=== PATIENT | female | born 2000 | race Caucasian/White ===

== ENCOUNTER → 2021-10-14 | Outpatient (CLI) | payer OTHER | END | disposition home or self-care (01) | LOC: US 10:00 | PROVIDERS: ATTEND Nurse Practitioner Women's Health | DX: N93.9 Abnormal uterine and vaginal bleeding, unspecified (principal); Z53.8 Procedure and treatment not carried out for other reasons; Z97.5 Presence of (intrauterine) contraceptive device ==

== ENCOUNTER 2022-12-03 08:31 | Emergency (ER) | payer OTHER ==
[~2022-12-03] VITALS: Ht 157.4 cm; Wt 79.4 kg
[2022-12-03] MEDS ORDERED: TOPIRAMATE25 M3 PO (08:45)
[2022-12-03] MEDS ORDERED: OMEPRAZOLE40 MG PO (08:45)
[2022-12-03] MEDS ORDERED: PREDNISONE50 MG PO (10:17)
[2022-12-03] MEDS ORDERED: EPIPEN 2-P0.3 MG/0.3 IJ (10:19)
== END 2022-12-03 10:26 | disposition home or self-care (01) ==
LOC: ED 08:31
DX: T78.1XXA Other adverse food reactions, not elsewhere classified, initial encounter (principal); Z91.013 Allergy to seafood; Z88.8 Allergy status to other drugs, medicaments and biological substances; Z79.899 Other long term (current) drug therapy; X58.XXXA Exposure to other specified factors, initial encounter

== ENCOUNTER 2022-12-05 11:07 | Emergency (ER) | payer OTHER ==
[~2022-12-05] VITALS: Ht 157.4 cm; Wt 79.4 kg
[~2022-12-05 11:07] MED LIST: EPIPEN 2-P0.3 MG/0.3 IJ; OMEPRAZOLE40 MG PO; PREDNISONE50 MG PO; TOPIRAMATE25 M3 PO
== END 2022-12-05 12:43 | disposition home or self-care (01) ==
LOC: ED 11:07
DX: L29.9 Pruritus, unspecified (principal); Z88.5 Allergy status to narcotic agent; Z91.041 Radiographic dye allergy status; Z91.013 Allergy to seafood

== ENCOUNTER 2023-10-08 16:52 | Emergency (ER) | payer OTHER ==
[~2023-10-08] VITALS: Ht 157.4 cm; Wt 79.4 kg
[2023-10-08] MEDS ORDERED: IBUPROFEN 800 MG TAB PO ONE (17:15)
[2023-10-08 17:22] LABS: BILIRUBIN Negative (Negative); BLOOD Negative (Negative); CLARITY Clear (Clear); COLOR Yellow (Yellow); GLUCOSE Negative (Negative); KETONE Negative (Negative); LEUKO ESTERASE Negative (Negative); NITRITE Negative (Negative); PH 6.5 (4.5-8.0)
[2023-10-08 17:35] LABS: BACTERIA 1+; EPITHELIAL CELLS 41-50; RBC 0-2 rbc/hpf (0-2); WBC 0-2 wbc/hpf (0-5)
== END 2023-10-08 17:55 | disposition home or self-care (01) ==
LOC: ED 16:52
PROVIDERS: Physician Assistant Medical
DX: R10.30 Lower abdominal pain, unspecified (principal); Z20.822 Contact with and (suspected) exposure to COVID-19; Z32.02 Encounter for pregnancy test, result negative; Z88.5 Allergy status to narcotic agent; Z91.041 Radiographic dye allergy status; Z91.013 Allergy to seafood